=== PATIENT | male | born 1995 | race Caucasian/White ===

== ENCOUNTER 2023-09-17 18:04 | Emergency (ER) | payer OTHER ==
[~2023-09-17] VITALS: Ht 167.6 cm; Wt 59.0 kg
[2023-09-17 18:06] VITALS: O2SAT 99
[2023-09-17] MEDS ORDERED: EPIN0.3P3 IM (19:14)
[2023-09-17 19:49] VITALS: BP 122/75; PULSE 74; RESP 20; TEMP 98.3
== END 2023-09-17 19:53 | disposition home or self-care (01) ==
LOC: ER 18:04
DX: R00.2 Palpitations (principal)
CPT/HCPCS: 93005; 99283

== ENCOUNTER 2023-11-02 11:10 | Emergency (ER) | payer OTHER ==
[~2023-11-02] VITALS: Ht 180.3 cm; Wt 65.0 kg
[~2023-11-02 11:10] MED LIST: EPIN0.3P3 IM
[2023-11-02 11:18] VITALS: TEMP 98.7; O2SAT 99
[2023-11-02] MEDS: KETOROLAC 30MG/ML VIAL IM ONE (12:13)
[2023-11-02] MEDS: CYCLOBENZAPRINE 10MG TABLET PO ONE (12:13)
[2023-11-02] MEDS: DEXAMETHASONE 10 MG/ML VIAL PO ONE (12:13)
[2023-11-02 12:43] LABS: BASOPHILS % 0.6 % (0.0-2.0); EOSINOPHILS % 2.7 % (0.0-5.0); HEMATOCRIT. 46.7 % (42.0-52.0); HEMOGLOBIN. 15.6 g/dL (14.0-18.0); MEAN CORPUSCULAR HEMOGLOBIN 32.1 pg (28.0-32.0); MEAN CORPUSCULAR HGB CONC 33.5 g/dL (31.0-37.0); MEAN PLATELET VOLUME 9.6 fl (7.4-10.4); MONOCYTES % 7.2 % (2.0-8.0); NEUTROPHILS % 67.5 % (40.0-76.0); PLATELET 217 x1000/uL (130-400); RED BLOOD CELL COUNT 4.87 mill/uL (4.7-6.1); RED CELL DISTRIBUTION WIDTH 13.3 % (11.6-14.6); WHITE BLOOD COUNT 6.1 x1000/uL (4.5-11.0)
[2023-11-02 13:02] LABS: CALCIUM 10.2 mg/dL (8.7-10.4); CHLORIDE 104 mEq/L (98-107); POTASSIUM 3.9 mEq/L (3.5-5.1); SODIUM 139 mEq/L (136-145)
[2023-11-02 13:03] LABS: CARBON DIOXIDE 30 mEq/L (21-32)
[2023-11-02 13:08] LABS: CREATININE 0.8 mg/dL (0.6-1.3); GLUCOSE 90 mg/dL (70-105); UREA NITROGEN BLOOD 8 mg/dL (9-23)
[2023-11-02 13:10] LABS: ALANINE AMINOTRANSFERASE 12 IU/L (10-49); ASPARTATE AMINOTRANSFERASE 15 IU/L (<34); BILIRUBIN DIRECT 0.2 mg/dL (<=3.0); BILIRUBIN TOTAL 0.5 mg/dL (0.1-1.0); PROTEIN TOTAL 7.3 g/dL (6.0-8.3)
[2023-11-02 13:24] LABS: TROPONIN I HIGH SENSITIVITY < 4 ng/L (3.0-53)
[2023-11-02] MEDS ORDERED: CYCL10TA21 MT (15:27)
[2023-11-02 15:47] VITALS: BP 130/70; PULSE 80; RESP 15
== END 2023-11-02 15:48 | disposition home or self-care (01) ==
LOC: ER 11:17
DX: M79.605 Pain in left leg (principal); R07.89 Other chest pain
CPT/HCPCS: 99285; 71045; 80076; 80048; 82962; 83690; 85025; 84484; 36415; 93005; 96372; J1100; J1885

== ENCOUNTER 2023-11-08 05:51 | Emergency (ER) | payer OTHER ==
[~2023-11-08] VITALS: Ht 170.2 cm; Wt 75.0 kg
[~2023-11-08 05:51] MED LIST changes: +CYCL10TA21 MT
[2023-11-08 06:02] VITALS: TEMP 98.8; O2SAT 100
[2023-11-08 06:46] LABS: BASOPHILS % 0.5 % (0.0-2.0); EOSINOPHILS % 2.1 % (0.0-5.0); HEMATOCRIT. 45.3 % (42.0-52.0); HEMOGLOBIN. 15.3 g/dL (14.0-18.0); LYMPHOCYTES % 20.4 % (20.0-50.0); MEAN CORPUSCULAR HGB CONC 33.7 g/dL (31.0-37.0); MEAN PLATELET VOLUME 8.7 fl (7.4-10.4); MONOCYTES % 5.2 % (2.0-8.0); NEUTROPHILS % 71.8 % (40.0-76.0); PLATELET 240 x1000/uL (130-400); RED BLOOD CELL COUNT 4.77 mill/uL (4.7-6.1); RED CELL DISTRIBUTION WIDTH 13.7 % (11.6-14.6); WHITE BLOOD COUNT 9.4 x1000/uL (4.5-11.0)
[2023-11-08 06:50] LABS: CHLORIDE 107 mEq/L (98-107); POTASSIUM 3.9 mEq/L (3.5-5.1); SODIUM 143 mEq/L (136-145)
[2023-11-08 06:51] LABS: CALCIUM 9.9 mg/dL (8.7-10.4); CARBON DIOXIDE 28 mEq/L (21-32)
[2023-11-08 06:56] LABS: CREATININE 0.8 mg/dL (0.6-1.3); GLUCOSE 110 mg/dL (70-105); UREA NITROGEN BLOOD 6 mg/dL (9-23)
[2023-11-08] MEDS: KETOROLAC 30MG/ML VIAL IV ONE (07:26)
[2023-11-08] MEDS ORDERED: IBUP-2029 MT (08:15)
[2023-11-08 08:38] VITALS: BP 100/62; PULSE 76; RESP 16
[2023-11-08 08:40] LABS: TROPONIN I HIGH SENSITIVITY < 4 ng/L (3.0-53)
== END 2023-11-08 08:40 | disposition home or self-care (01) ==
LOC: ER 06:03
DX: R07.89 Other chest pain (principal); F10.20 Alcohol dependence, uncomplicated; Y90.9 Presence of alcohol in blood, level not specified
CPT/HCPCS: 80048; 85025; 85379; 84484; 36415; 71045; 93005; 96374; 99285; J1885; Z7610